=== PATIENT | female | born 1985 | race Caucasian/White ===

== ENCOUNTER 2018-05-04 01:13 | Emergency (ER) | payer OTHER ==
[2018-05-04 04:21] LABS: URINE BLOOD (Dip) POC Negative (NEGATIVE); URINE GLUCOSE (Dip) POC Negative (NEGATIVE); URINE KETONES (Dip) POC 1+ (NEGATIVE); URINE LEUKOCYTE EST (Dip) POC Negative (NEGATIVE); URINE NITRITE (Dip) POC Negative (NEGATIVE); URINE TOTAL PROTEIN POC 1+ (NEGATIVE)
== END 2018-05-04 05:09 | disposition home or self-care (01) ==
LOC: FTE 01:13
DX: R35.0 Frequency of micturition (principal); F84.0 Autistic disorder
CPT/HCPCS: 81003; 81025; 82962; 99282